=== PATIENT | female | born 1980 | race Caucasian/White ===

== ENCOUNTER 2020-05-12 16:41 | Emergency (ER) | payer OTHER, SELFPAY ==
--- NOTE | ~2020-05-12 | XR_ITS ---
EXAMINATION: XR lumbar spine 2-3V DATE: 05/12/2020 17:34 INDICATION: Left low back pain TECHNIQUE: Anteroposterior and lateral views of the lumbar spine, and cone-down lateral view of the l umbosacral junction were obtained. COMPARISON: None. FINDINGS: Alignment is normal. Vertebral body heights are normal. No fractures. Multilevel mild disc height los s throughout the lumbar and visualized lower thoracic spine. There is a band of lucency projecting ac ross the L5 pars interarticularis and could not exclude a pars intra-articular is defect. Sacrum and bilateral sacral iliac joints are normal. Bilateral hip joint spaces are normal. Several phleboliths in the pelvis. Normal bowel gas pattern. IMPRESSION: 1. Mild lumbar spondylosis with suggestion of possible L5 pars interarticularis defects without spond ylolisthesis. Reviewed, dictated and finalized at [facility]. [employer] IMPRESSION: 1. Mild lumbar spondylosis with suggestion of possible L5 pars interarticularis defects without spondylolisthesis.
[2020-05-12 16:56] VITALS: BP 130/75; PULSE 77; RESP 16; TEMP 37.2; O2SAT 99
--- NOTE | 2020-05-12 17:16 | ED.GENADULT ---
HPI - General Adult General Chief complaint: Back Pain/Injury Stated complaint: lower back pain Time Seen by Provider: 05/12/20 16:48 Source: patient Mode of arrival: ambulatory Limitations: no limitations History of Present Illness HPI narrative: Patient presents for evaluation of low back pain since last . She cannot identify any precipitating cause or injury. She thought that her symptoms may be related to sciatic nerve pain. She states that pain radiates to her left buttock and down the anterolateral aspect of the left thigh and also into the groin. She denies any fever, chills, nausea, vomiting, abdominal pain, urinary symptoms. She states that breast pain is 5 out of 10 in severity but this increases to a level significantly higher with ambulation and weightbearing. No saddle anesthesia. No bladder/bowel incontinence. Related Data Allergies Allergy/AdvReac Type Severity Reaction Status Date / Time codeine Allergy Unknown Vomiting Verified 05/12/20 17:00 Review of Systems Review of Systems: Narrative: CONSTITUTIONAL: Denies fever, chills, or sweats. EYES: Denies visual changes, redness, or discharge. ENT: Denies rhinorrhea, congestion, sore throat, or otalgia. CARDIOVASCULAR: Denies chest pain, palpitations, or edema. RESPIRATORY: Denies cough or dyspnea. GASTROINTESTINAL: Denies abdominal pain, nausea, vomiting, or diarrhea. GENITOURINARY: Denies dysuria or hematuria. SKIN: Denies rash or itching. MUSCULOSKELETAL: Denies joint pain. Reports low back pain with radiation to the left buttock, down anterolateral aspect of left thigh and into the left groin NEUROLOGIC: Denies headache, numbness, dizziness, or weakness. PSYCHIATRIC: Denies anxiety or depression. [facility] Past Medical History Medical History (Updated 05/12/20 @ 18:03 by Carlos Duncan, GLORIA, ) No pertinent past medical history Surgical History Surgical History No pertinent past surgical history Family History Family History Father Colon cancer Hypertension Mother Fibromyalgia Social History Social History Smoking status: Current every day smoker Tobacco type: cigarettes Additional smoking assessment comments: 1/2 ppd Alcohol intake: never Substance use: current Substance use type: marijuana Living arrangements: with family Gender identity (if verbalized by the patient): Female Spiritual care concerns: No Exam Narrative: Exam Narrative: GENERAL: Well-appearing, well-nourished. Visibly uncomfortable, crouched on the ground upon my initial examination HEAD: Normocephalic, atraumatic. EYES: PERRLA and EOMI. ENT: Nares clear, no rhinorrhea or epistaxis. Mucous membranes moist. Oropharynx without tonsillar hypertrophy exudate or other lesions. Bilateral TMs pearly scherer nonbulging NECK: Supple. No adenopathy or masses. No carotid bruits or JVD CHEST: Clear to auscultation. No respiratory distress. No wheezes rales or rhonchi HEART: Regular rate and rhythm. No murmur heard. Normal peripheral pulses. ABDOMEN: Soft, nontender, nondistended, normal active bowel sounds. Tenderness in left paraspinous muscles of lumbar spine, which seems inconsistent with a light amount of pressure applied with palpation EXTREMITIES: Normal range of motion. No edema. SKIN: Warm, dry, no rash. NEURO: No focal deficits. Alert and oriented x3. PSYCH: Normal mood and affect. Course Course Emergency Course: This is a 39-year-old female with several day history of low back pain with radiation into the groin through the left buttock and left thigh. She had a urinalysis performed that did not have any overt signs to suggest kidney stone. She had a x-ray that showed a likely pars defect at L5 with lumbar spondylosis. She has no signs or symptoms to suggest cauda equi
[2020-05-12] MEDS: KETOROLAC (*BKC) 60 MG/2 ML VIAL IM (17:34)
== END 2020-05-12 18:23 | disposition home or self-care (01) ==
PROVIDERS: Emergency Provider Nurse Practitioner
DX: M54.16 Radiculopathy, lumbar region (principal); M43.06 Spondylolysis, lumbar region; F17.210 Nicotine dependence, cigarettes, uncomplicated
CPT/HCPCS: 72100; 81003; 96372; 99213; G0463; J1885

== ENCOUNTER 2021-07-25 13:34 | Emergency (ER) | payer OTHER, SELFPAY ==
[2021-07-25 13:44] VITALS: BP 124/83; PULSE 93; RESP 16; TEMP 36.9; O2SAT 99
--- NOTE | 2021-07-25 14:03 | ED.DENTAL ---
HPI - Dental/Oral General Chief complaint: Dental/Oral Stated complaint: tooth pain Time Seen by Provider: 07/25/21 14:03 Source: patient, RN notes reviewed and old records reviewed Mode of arrival: ambulatory Limitations: no limitations History of Present Illness HPI Narrative: 41 years old female who presents to [facility] care with complaints of acute dental pain to most posterior lower molar on the right side since eating a hot dog and cracking her tooth on the . Patient states that she awoke at 0100 with severe pain to her tooth and has taken Naproxen and Tylenol with no relief in her pain. Patient denies any shortness of breath or any difficulty with her swallowing. no trismus noted. MD Complaint: tooth pain Location: Tooth # (32) Duration: constant Severity: severe Severity scale (1-10): 10 Relieving factors: nothing Treatment prior to arrival: oral analgesic Related Data Allergies Allergy/AdvReac Type Severity Reaction Status Date / Time codeine Allergy Unknown Vomiting Verified 07/25/21 14:07 Review of Systems Review of Systems: CONSTITUTIONAL: Denies fever, chills, or sweats. EYES: Denies visual changes, redness, or discharge. ENT: Denies rhinorrhea, congestion, sore throat, or otalgia.positive for dental pain to #32 tooth CARDIOVASCULAR: Denies chest pain, palpitations, or edema. RESPIRATORY: Denies cough or dyspnea. GASTROINTESTINAL: Denies abdominal pain, nausea, vomiting, or diarrhea. GENITOURINARY: Denies dysuria or hematuria. SKIN: Denies rash or itching. MUSCULOSKELETAL: Denies back pain, joint pain, or myalgia. NEUROLOGIC: Denies headache, numbness, or weakness. PSYCHIATRIC: Positive for history of anxiety or depression. All systems reviewed & are unremarkable except as noted in HPI and below PMFSH Past Medical History Medical History (Updated 07/25/21 @ 23:07 by Farheen Barrientos NP) Anxiety with depression MVP (mitral valve prolapse) Surgical History Surgical History (Updated 07/25/21 @ 14:11 by Farheen Barrientos NP) H/O tubal ligation Previous section Family History Family History Father Colon cancer Hypertension Mother Fibromyalgia Social History Social History (Updated 07/25/21 @ 14:13 by Farheen Barrientos NP) Smoking status: Current every day smoker Tobacco type: cigarettes Additional smoking assessment comments: /2 ppd Alcohol intake: current Alcohol use details: social Substance use: current Substance use type: marijuana Last use: occasional use Living arrangements: with family Gender identity (if verbalized by the patient): Female Spiritual care concerns: No Comments At time of signature, agree with nursing past medical, surgical, social and family history. There is no relevant family history pertinent to the presenting complaint Exam Narrative: GENERAL: Well-appearing, well-nourished, and in no acute distress. HEAD: Normocephalic, atraumatic. EYES: PERRLA and EOMI. ENT: Nares clear, no rhinorrhea or epistaxis. Mucous membranes moist.TM's normal with good light reflex, throat pink with no lesions or exudates or tonsil enlargement, dental pain to #32 tooth with noted caries to tooth and some gum swelling, no Kwame angina noted, no facial swelling or any trismus. NECK: Supple. no lymphadenopathy CHEST: Clear to auscultation. No respiratory distress.SAO2 99% on room air. HEART: Regular rate and rhythm. No murmur heard. Normal peripheral pulses. ABDOMEN: Soft, nontender, nondistended, normal active bowel sounds. EXTREMITIES: Normal range of motion. No edema. SKIN: Warm, dry, no rash. NEURO: No focal deficits. Alert and oriented x3. Course Course Level of Care: Express Care Visit Vital Signs Vital signs: Vital Signs Temperature 36.9 C 07/25/21 13:44 Pulse Rate 93 07/25/21 13:44 Respiratory Rate 16 07/25/21 13:44 Blood Pressure 124/83 07/25/21 13:44 Pulse Oximetry
== END 2021-07-25 14:20 | disposition home or self-care (01) ==
PROVIDERS: Emergency Provider Registered Nurse
DX: K08.89 Other specified disorders of teeth and supporting structures (principal); F17.210 Nicotine dependence, cigarettes, uncomplicated; I34.1 Nonrheumatic mitral (valve) prolapse
CPT/HCPCS: 99213; G0463

== ENCOUNTER 2021-08-02 10:43 | Outpatient (RCR) | payer OTHER, SELFPAY | END 2021-08-02 10:44 | disposition home or self-care (01) | LOC: ANHPT 10:43 | PROVIDERS: Visit Provider Physician Assistant | DX: M54.50 Low back pain, unspecified (principal) | CPT/HCPCS: 99199 ==